=== PATIENT | female | born 1975 | race Caucasian/White ===

== ENCOUNTER 2016-12-16 09:20 | Emergency (ER) | payer OTHER ==
[~2016-12-16] VITALS: Ht 165.1 cm; Wt 85.7 kg
[~2016-12-16 09:20] MED LIST: AUGMENTIN 875 M1 TAB PO; CIPRO 500MG TA500 MG PO; ENDOCET 325 MG-1 TA1 PO; FIBRO-TABS1 TAB PO; FLAG500 PO; IBUPROFEN800 M1 PO; ORTHO TRI-CYCLE1 TA2 PO; PERCOCET 325 MG1 TA2 PO; VITAMIN D32000 I1 PO
[2016-12-16 09:25] VITALS: BP 150/92
[2016-12-16] MEDS ORDERED: MULTI-DAY VITA1 EACH PO (09:43)
[2016-12-16] MEDS ORDERED: OMEGA 3-6-9 11200 MG PO (09:43)
[2016-12-16] MEDS ORDERED: ORTHO TRI-CYCL1 EAC1 PO (09:43)
--- NOTE | 2016-12-16 09:50 | ED GI/GU/ABDOMINAL COMPLAINT ---
History of Present Illness General Chief Complaint: Female Urogenital Problems Stated Complaint: LFT SIDED BACK RADIATING TO ABD PAINFUL URINATION Source: patient Exam Limitations: no limitations Vital Signs & Intake/Output Vital Signs & Intake/Output Vital Signs Date Time Temp Pulse Resp B/P Pulse O2 O2 Flow FiO2 Ox Delivery Rate 12/16 0944 Room Air Room Air 12/16 09 97.2 81 15 150/92 99 Room Air Allergies Coded Allergies: No Known Allergies (12/16/16) Reconcile Medications Amoxicillin/Potassium Clav (Augmentin 875-125 Tablet) 875 MG-125 MG TABLET 1 TAB PO BID PYELO CHOLECALCIFEROL (VITAMIN D3) (Vitamin D-3) 2,000 IU SGL 1 SGL PO DAILY SUPPLEMENT (Reported) Fiber (Fibro-Tabs) 1 TAB TAB 3 TAB PO DAILY SUPPLEMENT (Reported) Fish Oil/Borage/Flax/Om3,6,9#1 ([place] 3-6-9 1,200 MG Softgel) 1,200 MG CAPSULE 1 CAP PO DAILY SUPPLEMENT (Reported) Multivitamin (Multi-Day Vitamins) 1 EACH TABLET 1 TAB PO DAILY SUPPLEMENT ( Reported) Norgestimate-Ethinyl Estradiol (Ortho Tri-Cyclen Lo Tablet) 4CNART8 LO TABLET 1 TAB PO DAILY CONTROL (Reported) Ondansetron (Zofran Odt) 4 MG TAB.RAPDIS 1 TAB SL TID PRN PYELO Triage Note: PT TO ED FOR L SIDED FLANK PAIN X 3 DAYS, ALSO REPORTING INCREASED URINARY FREQUENCY AND URGENCY. TOOK A PYRIDIUM THIS AM WITH NO RELIEF. REPORTING NAUSEA, DENIES VOMITING/DIARRHEA. Triage Nurses Notes Reviewed? yes ? n Is pt currently ? No HPI: 40-YEAR-OLD NONRADIATING LEFT-SIDED FLANK PAIN that started 3 days ago. She thought it was a backache/muscle strain but is getting more severe more intense, currently moderate to severe, aching sensation, no modifying factors. She has urinary frequency and urgency without urinary burning that started this morning. She is nauseous without vomiting, had mild chills. She took an Azo this morning [id number] without relief. She has history of urinary tract infections, sometimes she gets typical urinary tract infection symptoms and sometimeS she does not. She has no history of pyelonephritis. She currently is on her menses. She denies (DARRON AGUSTIN) Past History Travel History Traveled to [place] past 21 day No Medical History Any Pertinent Medical History? see below for history Neurological: NONE EENT: NONE Cardiovascular: NONE Respiratory: NONE Gastrointestinal: diverticulitis Hepatic: NONE Renal: uti Musculoskeletal: NONE Psychiatric: NONE Endocrine: NONE Blood Disorders: NONE Cancer(s): NONE PROOF OPERATOR/Reproductive: NONE Surgical History Surgical History: none, SINUS Psychosocial History What is your primary language Czech Tobacco Use: Never used ETOH Use: denies use Illicit Drug Use: denies illicit drug use Family History Hx Contributory? No (DARRON AGUSTIN) Review of Systems Review of Systems Constitutional: Reports: see HPI. EENTM: Reports: no symptoms. Respiratory: Reports: no symptoms. Cardiovascular: Reports: no symptoms. GI: Reports: no symptoms. Genitourinary: Reports: see HPI. Musculoskeletal: Reports: no symptoms. Skin: Reports: no symptoms. Neurological/Psychological: Reports: no symptoms. Hematologic/Endocrine: Reports: no symptoms. Immunologic/Allergic: Reports: no symptoms. All Other Systems: Reviewed and Negative (DARRON AGUSTIN) Physical Exam Physical Exam Gastrointestinal: normal bowel sounds, soft, non-tender, POSITIVE LEFT-SIDED cva TENDERNESS Comments: Well-developed well-nourished appears mildly uncomfortable, holding her left flank HEENT: Atraumatic, extraocular motion intact Neck: Supple, no lymphadenopathy Back: Nontender Respiratory: No respiratory distress clear to auscultation bilateral. Heart: Regular rate and rhythm no murmur Abdomen: Soft nontender nondistended Extremities: No edema, full range of motion Neuro: Alert and oriented x3 Psych: Mood affect normal, normal memory normal judgment. Skin: Warm and dry, no rash on exposed skin Core Measures ACS in differential dx? No Severe Sepsis Present: No Septic Shock Present: No (DARRON AGUSTIN) Progress Differential Diagnosis: AAA, appendicitis, biliary colic, bowel obstruction, colon cancer, cholecystitis, diverticulitis, ectopic , endometritis, esophageal varices, gastritis, hepatitis, hernia, hemorrhoids, ischemic bowel, inflamm bowel dis, intrauterine , kidney stone, Selene-David tear, ovarian cyst, ovarian torsion, pancreatitis, PID/cervicitis, peptic ulcer, PUD/ GERD, perforated viscous, SBO, threatened AB, UTI/pyelo Plan of Care: Orders Procedure Date/time Status CULTURE,URINE 12/16 925 Active URINALYSIS 12/16 925 Complete Laboratory Tests 12/16/16928: Urinalysis MOD H, Urine Color ORANG H, Urine Clarity CLEAR, Urine pH 6.5, Ur Specific [place] <= 1.005, Urine Protein TRACE H, Urine Ketones NEG, Urine Nitrite POS H, Urine Bilirubin NEG, Urine Urobilinogen 2.0 H, Ur Leukocyte Esterase MOD H, Ur Microscopic SEDIMENT EXAMINED, Urine RBC 1-3, Urine WBC RARE , Ur Epithelial Cells MOD H, Urine Bacteria FEW H, Urine Hemoglobin MOD H, Urine Glucose 100 H Microbiology 12/16 926 URINE ROUT: Urine Culture - RECD Initial ED EKG: none Comments: Patient given 30 mg of Toradol IM. Milligrams Zofran by mouth. Her signs and symptoms are consistent with an early pyelonephritis and we'll treat with Augmentin. Patient states she had diverticulitis 2 weeks ago and was treated with 10 days of Cipro and Flagyl and states that Cipro really bothered her stomach, she finished the course 3 days ago. I'm concerned that she may have a drug resistant bacteria in her urine because of having urinary tract infection so soon after stopping Cipro. I also considered intra-abdominal infection and abscess however her symptoms are consistent with pyelonephritis with left flank pain and urinary frequency burning and urgency and no left lower quadrant abdominal tenderness, I do not feel as though she has a competition from the diverticulitis. She'll return with worsening symptoms, nausea vomiting fever or flulike illness. She understands and agrees with plan (DARRON AGUSTIN) Departure Departure Disposition: HOME OR SELF CARE Condition: Stable Clinical Impression Primary Impression: Pyelonephritis Referrals: SANCHO APPLE MD (PCP/Family) Additional Instructions: Take antibiotics as directed. Zofran for nausea. Take Motrin and Tylenol for fever and pain. Drink plenty of water Return with worsening fever, flulike illness, nausea vomiting or back pain. Return if you are unable to keep fluids down. Departure Forms: Customer Survey General Discharge Information Prescriptions: Current Visit Scripts Amoxicillin/Potassium Clav (Augmentin 875-125 Tablet) 1 TAB PO BID #20 TAB Ondansetron (Zofran Odt) 1 TAB SL TID PRN PYELO #15 TAB (DARRON AGUSTIN) PA/STEM ROLLER OR CRUSHER OPERATOR Co-Sign Statement Statement: ED Attending supervision documentation- [] I saw and evaluated the patient. I have also reviewed all the pertinent lab results and diagnostic results. I agree with the findings and the plan of care as documented in the PA's/STEM ROLLER OR CRUSHER OPERATOR's documentation. [X] I have reviewed the ED Record and agree with the PA's/STEM ROLLER OR CRUSHER OPERATOR's documentation. [] Additions or exceptions (if any) to the PAs/STEM ROLLER OR CRUSHER OPERATOR's note and plan are summarized below: [] (FELICITAS CHRISTIANSEN,ANDREW Lynn)
[2016-12-16] MEDS ORDERED: AUGMENTIN 875-1 EACH PO (10:16)
[2016-12-16] MEDS ORDERED: ZOFRAN ODT4 M1 SL (10:16)
== END 2016-12-16 10:34 ==
LOC: ERH 09:20
DX: N12 Tubulo-interstitial nephritis, not specified as acute or chronic (principal)
CPT/HCPCS: 81001; 87086; 96372; J1885; J3101